=== PATIENT | male | born 1990 ===

== ENCOUNTER 2025-05-26 16:53 | Emergency (ER) | payer OTHER, SELFPAY ==
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
[2025-05-26 17:10] VITALS: BP 114/79; PULSE 80; RESP 20; TEMP 37.1; O2SAT 96
[2025-05-26 17:16] VITALS: BP 123/78; PULSE 80; RESP 18; TEMP 36.1; O2SAT 98; BMI 28.1
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
--- OUTSIDE RECORDS SUMMARY | 2025-05-26 19:22 | XMS_ITS | Clinical Summary ---
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 Name Role Phone Unavailable Primary Care Provider Unavailabl e Social History Tobacco Use Types Packs/Day Years Used Date Smoking Tobacco: Never Assessed Sex and Gender Information Value Date Recorded Sex Assigned at Not on file Legal Sex Male 4:31 AM EST Gender Identity Not on file Sexual Orientation Not on file Plan of Treatment Health Maintenance Due Date Last Done Comments DTaP,Tdap,and Td Vaccines (1 - Tdap) 2010 Hepatitis B Vaccines (1 of 3 - 19+ 3-dose series) 2010 HPV Vaccines (1 - 3-dose SCD M series) 2018 Depression Screening 08/08/2024 COVID-19 Vaccine (1 - 2023-2 5 season) 2025 Influenza Vaccine (#1) 2025 RSV Immunization Adult Patie nts (1 - 1-dose 75+ series) 2066 HIB Vaccines Aged Out No longer eligi ble based on patient's age to complete this topic Hepatitis A Vaccines Aged Out No long er eligible based on patient's age to complete this topic IPV Vaccines Aged Out No longer eligi ble based on patient's age to complete this topic MMR Vaccines Aged Out No longer eligi ble based on patient's age to complete this topic Meningococcal ACWY Vaccine Aged Out N o longer eligible based on patient's age to complete this topic Meningococcal B Vaccine Aged Out No l onger eligible based on patient's age to complete this topic Pneumococcal Vaccine: Pediat rics (0 to 5 Years) and At-Risk Patients (6 to 49 Years) Aged Out No longer eligible b ased on patient's age to complete this topic RSV Immunization Patients Un isaac 20 months Aged Out No longer eligible b ased on patient's age to complete this topic Varicella Vaccines Aged Out No longer eligible based on patient's age to complete this topic
[2025-05-26 19:36] VITALS: BP 117/73; PULSE 85; RESP 16; TEMP 36.7; O2SAT 98
[2025-05-26 21:45] VITALS: BP 123/80; PULSE 75; RESP 16; TEMP 36.7; O2SAT 97
[2025-05-26 21:56] VITALS: BP 123/80; PULSE 75; RESP 16; TEMP 36.7; O2SAT 97
== END 2025-05-26 21:57 | disposition home or self-care (01) ==
PROVIDERS: Emergency Provider Student in an Organized Health Care Education/Training Program; PCP Family Medicine
DX: S63.501A Unspecified sprain of right wrist, initial encounter (principal); S66.911A Strain of unspecified muscle, fascia and tendon at wrist and hand level, right hand, initial encounter; V86.95XA Unspecified occupant of 3- or 4- wheeled all-terrain vehicle (ATV) injured in nontraffic accident, initial encounter; Y93.9 Activity, unspecified; Y92.9 Unspecified place or not applicable
CPT/HCPCS: 73060; 73090; 99283; 99284

== ENCOUNTER → 2025-05-26 17:17 | Outpatient (BNV) | payer OTHER, SELFPAY | PROVIDERS: PCP Family Medicine; Visit Provider Radiology Diagnostic Radiology | DX: M79.621 Pain in right upper arm (principal); S62.001A Unspecified fracture of navicular [scaphoid] bone of right wrist, initial encounter for closed fracture | CPT/HCPCS: 73060; 73090 ==

== ENCOUNTER 2025-05-29 11:37 | Outpatient (REF) | payer OTHER, SELFPAY ==
--- OUTSIDE RECORDS SUMMARY | 2025-05-30 14:49 | XMS_ITS | Clinical Summary ---
Author Organization [facility] Address [address] [place] [address] Care Team Providers Care Almond Paste Molder Name Role Phone Unavailable Primary Care Provider [...]
== END 2025-05-29 11:38 | disposition home or self-care (01) ==
LOC: HO.HOSX 11:37
PROVIDERS: Visit Provider Orthopaedic Surgery
DX: Z13.89 Encounter for screening for other disorder (principal)